=== PATIENT | female | born 1980 | race Hispanic/Latino ===

== ENCOUNTER 2017-06-25 04:19 | Emergency (ER) | payer SELFPAY ==
[2017-06-25 04:30] LABS: Bilirubin Negative (Negative); Blood, Urine Large (Negative); Glucose, Urine (Dipstick) Negative (Negative); Ketone, Urine Negative (Negative); Nitrite Negative (Negative); Protein, Urine (Dipstick) 30 mg/dL (Neg-Trace); Urobilinogen 0.2 mg/dL (0.2-1.0)
[2017-06-25 04:31] LABS: Bacteria/HPF 1+ HPF (None Seen); Hyaline Casts/LPF NONE SEEN LPF (0-3 Hyaline)
[2017-06-25 04:44] LABS: RBC/HPF GREATER THAN 50-TNTC HPF (0-3)
[2017-06-25] MEDS ORDERED: Phenazopyridine HCl 97.5 MG TABLET ONE ×2 (04:45→04:46)
[2017-06-25] MEDS ORDERED: Ondansetron ODT 4 MG TAB ONE (04:45)
[2017-06-25] MEDS ORDERED: Cephalexin 500 MG CAP ONE (04:45)
[2017-06-25 05:08] LABS: #Basophils 0.1 thou/uL (0.0-0.2); #Eosinphils 0.2 thou/uL (0.0-0.7); #Lymphocytes 2.1 thou/uL (1.20-3.40); #Monocytes 0.8 thou/uL (0.11-0.59); #Neutrophils 6.9 thou/uL (1.40-6.50); %Basophils 0.7 % (0.0-1.0); %Eosinophils 2.2 % (0.0-10.0); %Lymphocytes 21.1 % (21.0-51.0); %Monocytes 7.9 % (0.0-10.0); Mean Platelet Volume 6.8 fL (7.4-10.4); Red Blood Cell (RBC) Count 3.92 mill/uL (4.20-5.40); White Blood Cell (WBC) Count 10.1 thou/uL (4.8-10.8)
[2017-06-25 05:21] LABS: ALT (SGPT) 10 U/L (8-55); AST (SGOT) 13 U/L (5-34); Alkaline Phosphatase 47 U/L (40-150); Anion Gap 12 mmol/L (10-20); BUN (Urea Nitrogen) 15 mg/dL (7.0-18.7); Bilirubin, Total 0.3 mg/dL (0.2-1.2); Calc. Creatinine Clearance 0 mL/min (70-130); Calcium 8.5 mg/dL (7.8-10.44); Carbon Dioxide 24 mmol/L (22-29); Chloride 108 mmol/L (98-107); Estimated GFR-MDRD Greater than 90; Globulin 3.4 g/dL (2.4-3.5); Protein, Total 6.9 g/dL (6.0-8.3)
== END 2017-06-25 05:28 | disposition home or self-care (01) ==
LOC: SCSER 04:19
DX: N39.0 Urinary tract infection, site not specified (principal)
CPT/HCPCS: 80053; 81003; 81015; 81025; 85025; 87077; 87086; 99283; Q0162

== ENCOUNTER 2018-12-12 00:47 | Emergency (ER) | payer MEDICAID, SELFPAY ==
[2018-12-12 01:03] LABS: Bilirubin Large (Negative); Blood, Urine Large (Negative); Clarity TURBID (Clear); Glucose, Urine (Dipstick) 100 mg/dL (Negative); Leukocyte Large (Negative); Nitrite Positive (Negative); Protein, Urine (Dipstick) 300 mg/dL (Neg-Trace); Specific Gravity, Urine 1.022 (1.002-1.036); pH, Urine 5.5 (5.0-9.0)
[2018-12-12 01:05] LABS: Bacteria/HPF Rare-Few HPF (None Seen); RBC/HPF GREATER THAN 50-TNTC HPF (0-3); Squamous Epithelial 0-3 HPF (0-3)
[2018-12-12 01:09] LABS: Pathc Cast-AUWi Flag 643.16 (0-2.49)
[2018-12-12 01:21] LABS: Hyaline Casts/LPF 0-3 HYALINE CAST LPF (0-3 Hyaline); Other Casts/LPF None Seen LPF (0-3 Hyaline)
[2018-12-12] MEDS ORDERED: Lidocaine 2% PF 5 ML VIAL ONE (01:37)
[2018-12-12] MEDS ORDERED: cefTRIAXone\\ROCEPHIN 1 GM VIAL ONE (01:37)
== END 2018-12-12 01:48 | disposition home or self-care (01) ==
LOC: ERS 00:47
DX: N39.0 Urinary tract infection, site not specified (principal)
CPT/HCPCS: 81003; 81015; 96372; J0696; J2001

== ENCOUNTER 2019-08-13 08:59 | Emergency (ER) | payer SELFPAY ==
[2019-08-13 11:14] LABS: Bacteria/HPF 1+ HPF (None Seen); Bilirubin Negative (Negative); Blood, Urine Negative (Negative); Clarity Clear (Clear); Glucose, Urine (Dipstick) Normal (Negative); Leukocyte 75 Leu/uL (Negative); Nitrite Negative (Negative); Pregnancy Test - Urine (BHCG) Negative (Negative); Pregu Control Background? CLEAR/WHITE (CLR/WHITE); Pregu Control Bar Appear? YES (CONTROL BAR); Protein, Urine (Dipstick) Negative (Neg-Trace); Urobilinogen Normal mg/dL (Less than 2); WBC/HPF 21-50 HPF (0-3)
[2019-08-13] MEDS ORDERED: Ibuprofen 200 MG TAB ONE (11:48)
[2019-08-13] MEDS ORDERED: Ondansetron ODT 4 MG TAB ONE (11:48)
--- NOTE | 2019-08-13 13:08 | ULT ---
TRANSABDOMINAL AND TRANSVAGINAL PELVIC ULTRASOUND WITH DOPPLER: 08/13/2019 PROVIDED CLINICAL HISTORY: Pelvic pain. COMPARISON: 01/04/2014 FINDINGS: The uterus measures about 9.6 x 4.3 x 5.6 cm. There is an area of altered echogenicity, which is some what circumscribed, involving/adjacent to the endometrium, involving the posterior aspects of the penobscot rine fundus. Whether this is myometrial or endometrial in origin is not certain. This appears similar to the prior examination. The right and left ovaries demonstrate no significant abnormality. Color Doppler and spectral analysi s of the ovarian waveforms demonstrate normal flow bilaterally. There is simple appearing free pelvic fluid demonstrated, possibly physiologic. IMPRESSION: 1. Stable, incompletely characterized mass-like area of altered echogenicity involving the uterine fu ndus. 2. Small amount of possibly physiologic free pelvic fluid. POS: OFF
== END 2019-08-13 14:15 | disposition home or self-care (01) ==
LOC: ERS 08:59
DX: N39.0 Urinary tract infection, site not specified (principal); N80.9 Endometriosis, unspecified
CPT/HCPCS: 76856; 81003; 81015; 81025; Q0162

== ENCOUNTER 2020-01-10 03:21 | Emergency (ER) | payer SELFPAY | END 2020-01-10 03:38 | disposition home or self-care (01) | LOC: ERS 03:21 | DX: K12.2 Cellulitis and abscess of mouth (principal); R59.0 Localized enlarged lymph nodes; F41.9 Anxiety disorder, unspecified; Z79.899 Other long term (current) drug therapy | CPT/HCPCS: 99283 ==

== ENCOUNTER 2020-02-18 14:58 | Observation (INO) | payer SELFPAY ==
[2020-02-18 15:39] LABS: #Eosinphils 0.1 thou/uL (0.0-0.7); #Lymphocytes 2.4 thou/uL (1.20-3.40); #Monocytes 1.1 thou/uL (0.11-0.59); #Neutrophils 6.2 thou/uL (1.40-6.50); %Basophils 0.4 % (0.0-1.0); %Eosinophils 1.2 % (0.0-10.0); %Lymphocytes 24.5 % (21.0-51.0); %Monocytes 11.3 % (0.0-10.0); %Neutrophils 62.7 % (42.0-75.0); Hemoglobin 11.9 g/dL (12.0-16.0); Mean Corpuscular HGB CONC 32.2 g/dL (32.0-36.0); Mean Corpuscular Hemoglobin 29.5 pg (27.0-31.0); Mean Corpuscular Volume 91.7 fL (78.0-98.0); Platelet Count 267 thou/uL (130-400); RBC Distribution Width 12.2 % (11.5-14.5); Red Blood Cell (RBC) Count 4.03 mill/uL (4.20-5.40); White Blood Cell (WBC) Count 9.9 thou/uL (4.8-10.8)
[2020-02-18 15:58] LABS: ALT (SGPT) 14 U/L (8-55); AST (SGOT) 19 U/L (5-34); Albumin 3.8 g/dL (3.5-5.0); Alkaline Phosphatase 60 U/L (40-110); Anion Gap 9 mmol/L (10-20); BUN (Urea Nitrogen) 11 mg/dL (7.0-18.7); Bilirubin, Total 0.4 mg/dL (0.2-1.2); Calc. Creatinine Clearance 0 mL/min (70-130); Calcium 8.3 mg/dL (7.8-10.44); Carbon Dioxide 24 mmol/L (22-29); Chloride 107 mmol/L (98-107); Estimated GFR-MDRD Greater than 90; Globulin 3.8 g/dL (2.4-3.5); Glucose 103 mg/dL (70-105); Potassium 3.4 mmol/L (3.5-5.1); Protein, Total 7.6 g/dL (6.0-8.3); Sodium 137 mmol/L (136-145)
[2020-02-18] MEDS ORDERED: Aspirin 325 MG TAB ONE (16:05)
--- NOTE | 2020-02-18 16:26 | CT ---
BRAIN CT WITHOUT IV CONTRAST: 02/18/20 HISTORY: Altered mental status, stroke alert, numbness and tingling on the right side. FINDINGS: No mass or midline shift. No intra or extra-axial hemorrhage. Stable appearance from 11/17/15. IMPRESSION: No significant acute process. No mass or bleed. Findings were discussed with Dr. Gutierrez at approximately 3:19 p.m. Code CR POS: RRE
[2020-02-18] MEDS ORDERED: Acetaminophen 325 MG TAB PO PRN (19:20)
--- NOTE | 2020-02-18 19:20 | HP ---
PRIMARY CARE PHYSICIAN: Dr. Conroy at [facility]. CHIEF COMPLAINT: Numbness on right side. HISTORY OF PRESENT ILLNESS: The patient is a very pleasant 39-year-old female with past medical history significant only for anxiety and migraines. She presents to the ER today for feeling of numbness on the right side for 3 days with an abnormal gait. She states that the people at work noticed that she was walking funny, although she did not notice it. They described it as sort of a limping gait. She also says the feeling on her right side from the face down to toes feels like pins and needles. There are no other symptoms including headache or blurred vision. She did state there was little bit of nausea when it started 3 days ago. In 2016, she was seen in the hospital with right-sided numbness and she was diagnosed with a complex migraine but does state that this feels a little different than that. Today in the ER, they completed an EKG, head CT and performed blood work. Aspirin 324 mg was given and a swallow eval was completed. PAST MEDICAL HISTORY: Migraine, anxiety. PAST SURGICAL HISTORY: Tubal ligation, cholecystectomy. ALLERGIES: PENICILLIN CAUSES SWELLING. MEDICATIONS: Citalopram 20 mg p.o. daily. SOCIAL HISTORY: Patient lives at home with her and 18-year-old son. She is the director of a childcare facility. She denies smoking or illicit drugs, but does drink alcohol socially but very rarely. FAMILY HISTORY: Negative for cardiac disease, lung disease or CVAs. REVIEW OF SYSTEMS: All other review of systems negative unless noted in HPI. PHYSICAL EXAMINATION: VITAL SIGNS: Blood pressure 108/63, pulse 65, respiratory rate 18, pain 0, O2 sat 99% on room air. GENERAL: The patient is a healthy-appearing woman who appears to be her stated age. She is alert and oriented. HEENT: Head is atraumatic and normocephalic. Eyes, pupils equal, round, and reactive to light. Conjunctiva normal. No photophobia. ENT: Mucous membranes moist. No tongue deviation. No lymphadenopathy. RESPIRATORY: Clear to auscultation bilaterally. No wheezes, no rales, no rhonchi. Normal chest movement. CARDIOVASCULAR: Regular rate and rhythm. No murmurs, no gallops, no rubs. GASTROINTESTINAL: Abdomen is nontender. No distention. Positive bowel sounds. EXTREMITIES: No edema, no clubbing, no cyanosis. NEUROLOGIC: The patient is oriented to person, place, and time. Speech is clear. Gait not assessed at this time. Cranial nerves intact. Right arm, able to fully move, but with decreased hat mender strength 4/5. Right leg with decreased strength 4 /5. Right face, arm, and leg with a slight decreased sensation to touch. No cerebellar deficits. No nystagmus noted. PSYCHIATRIC: Patient is alert and oriented. Normal behavior and normal affect. LABS AND IMAGING: EKG showed normal sinus rhythm at [address] of the brain showed no acute intracranial processes. Labs showed white blood cells 9.9, hemoglobin 11.9, hematocrit 37.0. Sodium 137, potassium 3.4, chloride 107, BUN 11, creatinine 0.71, GFR 90, glucose 120. IMPRESSION: 1. CVA versus Transient ischemic attack versus complex migraine. 2. Right side paresthesias. 3. Anxiety. PLAN: Pepcid 20 mg p.o. b.i.d. for GI prophylaxis, Lovenox 40 mg subcu daily for VTE prophylaxis. Neurology will be consulted to see the patient in the morning. The patient has few risk factors for a TIA or CVA and has had similar symptoms in the past leading to a diagnosis of complex migraine. She has experienced a great deal of stress at work lately with the changes implemented after the COVID 19 outbreak. MRI of the brain will be ordered in the morning. Fasting lipids will be collected. Stroke Team will follow the patient. Patient wishes to be a full code. Her will be her surrogate decision maker. Patient was discussed with Dr. Salcido. Job ID: [id number] [facility]
[2020-02-18 21:52] VITALS: BMI 26.7
[2020-02-18] MEDS: Famotidine 20 MG TAB PO SCH (21:55)
[2020-02-18] MEDS: Atorvastatin Calcium 40 MG TAB PO SCH (21:55)
[2020-02-19 05:06] LABS: #Eosinphils 0.2 thou/uL (0.0-0.7); #Lymphocytes 2.2 thou/uL (1.20-3.40); #Monocytes 0.7 thou/uL (0.11-0.59); #Neutrophils 2.9 thou/uL (1.40-6.50); %Basophils 0.7 % (0.0-1.0); %Eosinophils 3.2 % (0.0-10.0); %Monocytes 11.2 % (0.0-10.0); %Neutrophils 48.9 % (42.0-75.0); Hemoglobin 11.2 g/dL (12.0-16.0); Mean Corpuscular HGB CONC 31.2 g/dL (32.0-36.0); Mean Corpuscular Hemoglobin 29.2 pg (27.0-31.0); Mean Corpuscular Volume 93.3 fL (78.0-98.0); Mean Platelet Volume 7.3 fL (7.4-10.4); Platelet Count 248 thou/uL (130-400); RBC Distribution Width 12.1 % (11.5-14.5); Red Blood Cell (RBC) Count 3.83 mill/uL (4.20-5.40)
[2020-02-19 05:31] LABS: Anion Gap 8 mmol/L (10-20); BUN (Urea Nitrogen) 9 mg/dL (7.0-18.7); Calc. Creatinine Clearance 123 mL/min (70-130); Calcium 7.9 mg/dL (7.8-10.44); Carbon Dioxide 24 mmol/L (22-29); Cardiac Risk 2.7 (Less than 4.5); Chloride 110 mmol/L (98-107); Cholesterol 117 mg/dl (< 200 Desired); Estimated GFR-MDRD Greater than 90; Glucose 100 mg/dL (70-105); HDL Cholesterol 44 mg/dL (>60 Neg Risk); LDL Cholesterol, Calculated 65 mg/dL; Sodium 138 mmol/L (136-145); Triglycerides 41 mg/dL (Less than 150)
--- NOTE | 2020-02-19 08:05 | MRI ---
Exam: Brain MRI without contrast HISTORY: Transient ischemic attack COMPARISON: 09/07/2010 FINDINGS: Calvarial marrow signal intensity: Appropriate T1 signal Gradient echo sequence: No hemorrhage Brain parenchyma: No mass, mass effect or midline shift. Brain volume, age-appropriate. Cortical vo-white matter differentiation: Preserved Restricted diffusion: Central arterial flow voids are maintained. Absent restricted diffusion White matter signal intensities: T2, FLAIR white matter hyperintensities due to chronic small vessel ischemic changes Sinuses: Minimal mucosal thickening of the paranasal sinuses IMPRESSION: 1. Absent restricted diffusion. No acute infarct. 2. No acute intracranial process.
[2020-02-19] MEDS: Famotidine 20 MG TAB PO SCH ×2 (09:07→21:28)
[2020-02-19] MEDS: Aspirin 81 mg Enteric Coated Tablet PO SCH (09:07)
[2020-02-19] MEDS: Enoxaparin Sodium 40 MG/0.4 ML SYRINGE SC SCH (09:08)
--- NOTE | 2020-02-19 11:46 | PDOC.HOSPP ---
- Subjective Encounter Date: 02/19/20 Encounter Time: 11:44 Subjective: Ms. Hebert was seen today in follow-up of parasthesias on the right side. She denies headache or weakness. - Objective Vital Signs & Weight: Vital Signs (12 hours) Temp Pulse Pulse Resp BP BP BP 02/19/20 11:32 98.1 F 55 L 16 96/53 L 02/19/20 08:42 65 101/58 L 105/58 L 02/19/20 08:00 98.3 F 65 18 104/54 L 02/19/20 03:46 97.8 F 68 16 BP Pulse Ox 02/19/20 11:32 98 02/19/20 08:42 02/19/20 08:00 97 02/19/20 03:46 115/57 L 98 Weight Weight 146 lb I&O: 02/18/20 02/19/20 02/20/20 06:59 06:59 06:59 Intake Total 350 Balance 350 Result Diagrams: 02/19/20 04:50 02/19/20 04:50 Additional Labs: Accuchecks 02/18/20 15:11 POC Glucose 120 H Hospitalist ROS - Medication Medications: Active Medications Generic Name Dose Route Start Last Admin Trade Name Freq PRN Reason Stop Dose Admin Aspirin 81 mg 02/19/20 09:00 02/19/20 09:07 Ecotrin PO 81 mg DAILY COOPER Administration Atorvastatin Calcium 40 mg 02/18/20 21:00 02/18/20 21:55 Lipitor PO 40 mg HS COOPER Administration Enoxaparin Sodium 40 mg 02/19/20 09:00 02/19/20 09:08 Lovenox SC 40 mg 0900 COOPER Administration Famotidine 20 mg 02/18/20 21:00 02/19/20 09:07 Pepcid PO 20 mg BID COOPER Administration Sodium Chloride 10 ml 02/18/20 21:00 02/19/20 09:08 Flush - Normal Saline IVF 10 ml Q12HR COOPER Administration - Exam Eye: PERRL, anicteric sclera Heart: RRR, no murmur, no gallops, no rubs, normal peripheral pulses Respiratory: CTAB, no wheezes, no rales, no ronchi, normal chest expansion Gastrointestinal: soft, non-tender, non-distended, normal bowel sounds Extremities: no cyanosis, no edema Hosp A/P (1) Paresthesia of right arm and leg Code(s): R20.2 - PARESTHESIA OF SKIN Status: Acute - Plan * Right sided parasthesia- discussed with Dr. Cedillo- She does not believe this is a TIA, CVA, or Migraine It could possibly be MS. * An LP is recommended. I discussed this with the patient and she would prefer to have this done in the hospital. She says she would not be able to do this as an outpatient. * Blood pressure is low normal- will monitor
--- NOTE | 2020-02-19 12:01 | CON ---
DATE OF CONSULTATION: 02/19/2020 REASON FOR CONSULTATION: Focal paresthesias on the right side. HISTORY OF PRESENT ILLNESS: Ms. Hebert is a 39-year-old female with no significant past medical history except for anxiety and migraines, last one in 2015, presented to the emergency room yesterday with 3-day history of focal paresthesias on the right upper and lower extremity. Per the patient, the people noted that she was not walking right and was limping on the right side. She also started feeling pins and needles in the right upper and lower extremity, which made her difficult to walk. She denies any focal weakness, nausea, vomiting, headache, dizziness, vertigo, blurred vision, loss of vision, chest pain, abdominal pain, or headache associated with the event. She was diagnosed with a complex migraine in the past, but according to her, this time she had no headache. Her last migraine was in 2015. She had a similar episode of focal paresthesias and difficulty walking when she was in late 20s, which resolved on its own after a few months. She denies family history of MS. In the emergency room, head CT was performed, which did not reveal any acute intracranial pathology. She was given aspirin and admitted to the stroke unit for further evaluation. PAST MEDICAL HISTORY: Anxiety, migraines. PAST SURGICAL HISTORY: Cholecystectomy, tubal ligation. ALLERGIES: PENICILLIN. MEDICATIONS: Citalopram 20 mg daily. SOCIAL HISTORY: , lives with her 18-year-old son and . She works as a director of the Childcare Facility. Denies smoking, drugs, and but drinks alcohol rarely. FAMILY HISTORY: The family history is negative for MS, coronary artery disease, stroke, or pulmonary disease. REVIEW OF SYSTEMS: All other systems were reviewed and were negative except for pertinent positives and negatives noted in the HPI. Vital Signs & Weight: Vital Signs (12 hours) Temp Pulse Pulse Resp BP BP BP 02/19/20 11:32 98.1 F 55 L 16 96/53 L 02/19/20 08:42 65 101/58 L 105/58 L 02/19/20 08:00 98.3 F 65 18 104/54 L 02/19/20 03:46 97.8 F 68 16 BP Pulse Ox 02/19/20 11:32 98 02/19/20 08:42 02/19/20 08:00 97 02/19/20 03:46 115/57 L 98 Weight Weight 146 lb I&O: 02/18/20 02/19/20 02/20/20 06:59 06:59 06:59 Intake Total 350 Balance 350 02/19/20 04:50 Additional Labs: Accuchecks 02/18/20 15:11 POC Glucose 120 H Hospitalist ROS - Medication Medications: Active Medications Generic Name Dose Route Start Last Admin Trade Name Henrry PRN Reason Stop Dose Admin Aspirin 81 mg 02/19/20 09:00 02/19/20 09:07 Ecotrin PO 81 mg DAILY COOPER Administration Atorvastatin Calcium 40 mg 02/18/20 21:00 02/18/20 21:55 Lipitor PO 40 mg HS COOPER Administration Enoxaparin Sodium 40 mg 02/19/20 09:00 02/19/20 09:08 Lovenox SC 40 mg 0900 COOPER Administration Famotidine 20 mg 02/18/20 21:00 02/19/20 09:07 Pepcid PO 20 mg BID COOPER Administration Sodium Chloride 10 ml 02/18/20 21:00 02/19/20 09:08 Flush - Normal Saline IVF 10 ml Q12HR COOPER Administration - Exam Eye: PERRL, anicteric sclera Heart: RRR, no murmur, no gallops, no rubs, normal peripheral pulses Respiratory: CTAB, no wheezes, no rales, no ronchi, normal chest expansion Gastrointestinal: soft, non-tender, non-distended, normal bowel sounds Extremities: no cyanosis, no edema NEUROLOGICAL: Speech is clear. The patient is alert and oriented to person, place, and time. Cranial nerves 2 through 12 intact. Motor; muscle tone and bulk are normal. Strength 5/5 bilaterally. Sensory; decreased sensation to all sensory modalities in the right upper and lower extremity. Reflexes symmetric bilaterally. Cerebellar; finger-nose testing intact. Gait not tested because of the patient' s safety reasons. DATA REVIEWED: I reviewed the MRI of the brain, which was negative. The labs were essentially unremarkable. ASSESSMENT AND PLAN: Ms. Alea Hebert is consulted for 3-day history of focal paresthesias. MRI of the brain reviewed, which was negative for acute intracranial pathology. The patient denies headache during this episode. She had history of prior similar episode in the past. Past imaging negative per patient. May consider MS workup for focal paresthesias. PT/OT/speech Continue aspirin and statin for secondary stroke prevention. Neuro checks every 4 hours. Continue home medications. Continue medical management per Primary Team. Recommend echocardiography and EEG to rule out parietal region cortical irritability . We will follow up on the results. Further recommendations depend on the results of the testing. Plan discussed in detail with the patient and the primary attending, Dr. Salcido. Job ID: [id number] [facility]
--- NOTE | 2020-02-19 13:54 | RAD ---
Lumbar puncture fluoroscopic guided HISTORY: Paresthesias. Evaluate for multiple sclerosis. FINDINGS: After explaining the procedure and answering all questions, the lower back was prepped and draped in usual sterile fashion. Sterile technique, buffered local anesthesia, fluoroscopic guidance, and a posterior L2-3 approach were used to carefully advance the tip of a 20-gauge spinal n eedle to the thecal sac. Opening CSF pressure 19 cm. Total volume of 8 cc clear CSF was collected and submitted to laboratory for evaluation. Needle was removed. Patient tolerated the procedure well and was returned in unchanged condition. IMPRESSION: Technically successful lumbar puncture. Pathology is pending.
[2020-02-19 13:56] LABS: CSF Source CSF; Clarity Clear (Clear); Tube # 4
--- NOTE | 2020-02-19 14:56 | EEG ---
Referring Physician: Adelia MICHAEL EEG # [id number] TEST TYPE: EXTENDED CONTINUOUS VIDEO EEG REPORT: This EEG was performed using 24 channel [email or web address] video digital EEG machine with 24 disc electrodes. This was an extended 2 hour 11 minutes of inpatient video EEG recording. Digital analysis of the EEG was done for spike and seizure detection which revealed no abnormalities. BACKGROUND: The posterior background rhythm is 9-10 hertz. The background rhythm attenuates with eye opening and enhances with eye closure. HYPERVENTILATION: No significant response seen with hyperventilation. PHOTIC STIMULATION: Bioccipital symmetric driving response is observed. SLEEP: Drowsiness and brief sleep are observed. EEG DIAGNOSIS: NORMAL AWAKE, DROWSY AND ASLEEP EEG. Terrazzo Worker Apprentice: PATRICIA Storage Battery Inspector And Tester: [email or web address]
--- NOTE | 2020-02-19 15:02 | PDOC.EVN ---
Event Note - Event Note Event Note: Send out labs should take around 5 days to result. Patient should continue working with PT and once cleared by them and has received EEG results could possibly discharge home or to rehab and await the lab results outpatient. Discussed with Dr. Salcido.
[2020-02-19 16:33] LABS: Ref Lab Test Ordered IGM TOTAL CSF; Reference Lab Name LABCORP
[2020-02-19 16:36] LABS: Ref Lab Test Ordered IGG INDEX + SYNTH; Reference Lab Name LABCORP
[2020-02-19] MEDS: Atorvastatin Calcium 40 MG TAB PO SCH (21:28)
[2020-02-20 08:04] VITALS: TEMP 97.8
[2020-02-20] MEDS: Famotidine 20 MG TAB PO SCH (08:33)
[2020-02-20] MEDS: Enoxaparin Sodium 40 MG/0.4 ML SYRINGE SC SCH (08:33)
[2020-02-20] MEDS: Aspirin 81 mg Enteric Coated Tablet PO SCH (08:34)
[2020-02-20] MEDS ORDERED: methylPREDNISolone Sod Succ 1 GM in Sodium Chloride 0.9% 250 ML 250 ML IVPB SCH (10:15)
[2020-02-20] MEDS ORDERED: methylPREDNISolone Sod Succ 40 MG VIAL IVP SCH (10:15)
[2020-02-20] MEDS ORDERED: Hydrocortisone Sod Succ/PF 1,000 MG in Sodium Chloride 0.9% 250 ML 250 ML IVPB SCH (10:15)
[2020-02-20 11:43] VITALS: BP 111/51
--- NOTE | 2020-02-22 11:27 | DIS ---
DATE OF ADMISSION: 02/18/2020 DATE OF DISCHARGE: DISCHARGE DIAGNOSES: 1. Possible acute exacerbation of multiple sclerosis. 2. Possible complicated migraine. 3. Right-sided weakness and numbness. DISCHARGE MEDICATIONS: 1. Aspirin 81 mg orally daily. 2. Famotidine 20 mg orally twice daily. 3. Prednisone 500 mg twice daily for 4 days. HISTORY OF PRESENT ILLNESS AND HOSPITAL COURSE: The patient is a 39-year-old female with past medical history of anxiety and migraines, who presented to the hospital with weakness and numbness in her right side and difficulty walking for 3 days. The patient stated that she had episodes of numbness on different parts of her body and visual changes over the years that all resolved spontaneously. Differential diagnosis included CVA, complicated migraine, or multiple sclerosis. MRI of the brain did not show any acute abnormalities. EEG was unremarkable. A lumbar puncture was performed and the test was sent for oligoclonal band for which the results have yet to come back. The patient was initiated on high-dose IV corticosteroids in the hospital for suspected multiple sclerosis given her history. I will continue with prednisone 1 g a day for 4 more days to complete 5 days of treatment course. The patient will be given a walker for discharge. She has been instructed to follow up with her PCP in 1 week to follow on the CSF results. Outpatient followup with Neurology was also recommended. Job ID: [id number]
[2020-02-23 18:14] LABS: ANA Symphony (Qualitative) POSITIVE (Negative); CENP IgG Antibody 0.7 EliAU/mL (<7 Negative); Jo-1 IgG Antibody 0.4 EliAU/mL (<7 Negative); RNP70 IgG Antibody 0.3 EliAU/mL (<7 Negative); SSB/La IgG Antibody 0.6 EliAU/mL (<7 Negative); Scleroderma-70 IgG Antibody 1.1 EliAU/mL (<7 Negative); dsDNA IgG Antibody 1.3 IU/mL (<10 Negative)
== END 2020-02-20 11:53 | disposition home or self-care (01) ==
LOC: ERS 14:58 → 2SE 16:36
PROVIDERS: ADMIT Internal Medicine; ATTEND Internal Medicine
PROC: 00JU3ZZ Inspection of Spinal Canal, Percutaneous Approach (ICD-10-PCS; principal; 2020-02-20)
DX: R20.2 Paresthesia of skin (principal); R53.1 Weakness; F41.9 Anxiety disorder, unspecified; Z79.899 Other long term (current) drug therapy; Z88.0 Allergy status to penicillin
CPT/HCPCS: 36415; 36416; 62270; 70450; 70551; 80048; 80053; 80061; 83873; 83916; 84157; 84484; 85025; 86038; 86225; 86235; 87070; 87205; 89051; 93005; 95712; 95816; 95819; 95957; 96365; 96372; G0378; J1650; J2930; J7050

== ENCOUNTER 2020-02-25 15:35 | Emergency (ER) | payer SELFPAY ==
--- NOTE | 2020-02-25 16:14 | CT ---
CT HEAD WITHOUT IV CONTRAST COMPARISON: 02/18/2020 HISTORY: Syncope. TECHNIQUE: Axial CT imaging at 5 mm intervals from vertex through skull base without contrast FINDINGS: There is no evidence of an acute infarction, hemorrhage, mass effect, or midline shift. The ventricul ar system is normal in size, shape, and position. Visualized paranasal sinuses are clear. Osseous structures appear intact. CT head is stable compared to prior exam. IMPRESSION: 1. No acute intracranial abnormality demonstrated.
[2020-02-25 16:16] LABS: #Eosinphils 0.1 thou/uL (0.0-0.7); #Lymphocytes 2.9 thou/uL (1.20-3.40); #Monocytes 2.1 thou/uL (0.11-0.59); %Basophils 0.2 % (0.0-1.0); %Eosinophils 0.3 % (0.0-10.0); %Neutrophils 73.5 % (42.0-75.0); Hemoglobin 12.4 g/dL (12.0-16.0); Mean Corpuscular HGB CONC 33.6 g/dL (32.0-36.0); Mean Corpuscular Hemoglobin 30.5 pg (27.0-31.0); Mean Corpuscular Volume 90.8 fL (78.0-98.0); Platelet Count 322 thou/uL (130-400); RBC Distribution Width 12.2 % (11.5-14.5); Red Blood Cell (RBC) Count 4.06 mill/uL (4.20-5.40); White Blood Cell (WBC) Count 19.1 thou/uL (4.8-10.8)
[2020-02-25 16:21] LABS: BHCG - Serum Negative (NEGATIVE); Pregs Control Bar Appear? YES (CONTROL BAR)
[2020-02-25 16:22] LABS: Pregs Control Background? CLEAR/WHITE (CLR/WHITE)
[2020-02-25 16:29] LABS: ALT (SGPT) 27 U/L (8-55); AST (SGOT) 18 U/L (5-34); Albumin 2.8 g/dL (3.5-5.0); Alkaline Phosphatase 49 U/L (40-110); Anion Gap 9 mmol/L (10-20); BUN (Urea Nitrogen) 17 mg/dL (7.0-18.7); Bilirubin, Total 0.2 mg/dL (0.2-1.2); CK (CPK) 26 U/L (29-168); Calc. Creatinine Clearance 0 mL/min (70-130); Calcium 7.5 mg/dL (7.8-10.44); Carbon Dioxide 24 mmol/L (22-29); Chloride 107 mmol/L (98-107); Estimated GFR-MDRD Greater than 90; Glucose 112 mg/dL (70-105); Protein, Total 5.8 g/dL (6.0-8.3); Sodium 137 mmol/L (136-145)
[2020-02-25] MEDS ORDERED: Potassium Chloride 20 MEQ TAB ONE (16:52)
--- NOTE | 2020-02-27 14:27 | EKG ---
Test Reason : SYNCOPE Blood Pressure : / mmHG Vent. Rate : 074 BPM Atrial Rate : 074 BPM P-R Int : 140 ms QRS Dur : 080 ms QT Int : 394 ms P-R-T Axes : 054 019 018 degrees QTc Int : 437 ms Normal sinus rhythm Abnormal ECG Confirmed by DAIN TALBOT, SHARON Torres ([id number]), editor dictionary QUYEN GOSS ([id number]) on 02/27/2020 2:27:24 PM Referred By: Confirmed By:SHARON GAUTAM MD
== END 2020-02-25 17:14 | disposition home or self-care (01) ==
LOC: ERS 15:35
DX: R55 Syncope and collapse (principal); F41.9 Anxiety disorder, unspecified; G35 Multiple sclerosis; Z79.899 Other long term (current) drug therapy
CPT/HCPCS: 36415; 70450; 80053; 82550; 84484; 84703; 85025; 93005; 96360

== ENCOUNTER 2020-03-08 17:35 | Emergency (ER) | payer OTHER, SELFPAY ==
[2020-03-09 12:48] LABS: SARS-CoV-2 MS2 Positive; SARS-CoV-2 N Gene Negative; SARS-CoV-2 S Gene Negative; SARS-CoV-2 orf1ab Negative
== END 2020-03-08 18:20 | disposition home or self-care (01) ==
LOC: ERS 17:35
DX: R05 Cough (principal); F41.9 Anxiety disorder, unspecified; G35 Multiple sclerosis; Z79.899 Other long term (current) drug therapy; Z20.828 Contact with and (suspected) exposure to other viral communicable diseases
CPT/HCPCS: 87635; 99283; U0003

== ENCOUNTER 2021-07-17 22:29 | Emergency (ER) | payer SELFPAY | END 2021-07-17 23:15 | disposition home or self-care (01) | LOC: ERS 22:29 | DX: H10.9 Unspecified conjunctivitis (principal); H11.422 Conjunctival edema, left eye | CPT/HCPCS: 99283 ==

== ENCOUNTER 2024-08-23 23:25 | Emergency (ER) | payer BC ==
[2024-08-23] MEDS ORDERED: Ketorolac Tromethamine 30 MG (1 mL) VIAL ONE (23:40)
[2024-08-23] MEDS ORDERED: Morphine 4 MG/ML VIAL ONE (23:40)
[2024-08-23] MEDS ORDERED: Ondansetron PF 4 MG/2 ML Vial ONE (23:40)
[2024-08-23 23:58] LABS: #Basophils 0.04 10x3/uL (0.0-0.2); %Basophils 0.3 % (0.0-1.0); %Eosinophils 1.5 % (0.0-10.0); %Lymphocytes 29.9 % (21.0-51.0); %Neutrophils 58.9 % (42.0-75.0); Hematocrit 38.1 % (36.0-47.0); Hemoglobin 12.5 g/dL (12.0-16.0); Mean Corpuscular HGB CONC 32.8 g/dL (32.0-36.0); Mean Corpuscular Hemoglobin 28.8 pg (27.0-31.0); Mean Corpuscular Volume 87.8 fL (78.0-98.0); Mean Platelet Volume 9.2 fL (7.4-10.4); Platelet Count 331 10x3/uL (130-400); RBC Distribution Width 13.1 % (11.5-14.5); Red Blood Cell (RBC) Count 4.34 mill/uL (4.20-5.40)
[2024-08-24 00:14] LABS: ALT (SGPT) 14 U/L (8-55); AST (SGOT) 20 U/L (5-34); Albumin 3.7 g/dL (3.5-5.0); Alkaline Phosphatase 61 U/L (40-110); Anion Gap 12 mmol/L (10-20); BUN (Urea Nitrogen) 9 mg/dL (7.0-18.7); Bilirubin, Total 0.3 mg/dL (0.2-1.2); Calc. Creatinine Clearance 0 mL/min (70-130); Calcium 8.9 mg/dL (7.8-10.44); Carbon Dioxide 22 mmol/L (22-29); Chloride 105 mmol/L (98-107); Estimated GFR 107; Globulin 4.1 g/dL (2.4-3.5); Glucose 108 mg/dL (70-105); Potassium 3.7 mmol/L (3.5-5.1); Protein, Total 7.8 g/dL (6.0-8.3); Sodium 135 mmol/L (136-145)
[2024-08-24 00:52] LABS: Pregnancy Test - Urine (BHCG) Negative (Negative); Pregu Control Background? CLEAR/WHITE (CLR/WHITE); Pregu Control Bar Appear? YES (CONTROL BAR); Specific Gravity 1.011 (1.002-1.036)
[2024-08-24 00:53] LABS: Bilirubin Negative (Negative); Blood, Urine Large (Negative); Glucose, Urine (Dipstick) Negative (Negative); Ketone, Urine Negative (Negative); Leukocyte Moderate (Negative); Nitrite Negative (Negative); Protein, Urine (Dipstick) 100 mg/dL (Neg-Trace); Specific Gravity, Urine 1.015 (1.005-1.030); Urobilinogen 0.2 mg/dL (Less than 2)
[2024-08-24 00:54] LABS: Clarity Hazy (Clear)
[2024-08-24 01:11] LABS: Bacteria/HPF None Seen HPF (None Seen); CAUTI Indications for Culture Dysuria,urgency,freq; RBC/HPF Greater than 50 HPF (0-3); WBC/HPF 21-50 HPF (0-3)
[2024-08-24 01:15] LABS: Urine Culture Reflex Yes Yes
[2024-08-24] MEDS ORDERED: cefTRIAXone (ROCEPHIN) 2 GM VIAL ONE (01:38)
[2024-08-24] MEDS ORDERED: Sodium Chloride 0.9% 100 ML ONE (01:38)
== END 2024-08-24 03:00 | disposition home or self-care (01) ==
LOC: ERS 23:25
DX: N39.0 Urinary tract infection, site not specified (principal)
CPT/HCPCS: 36415; 74176; 80053; 81001; 81025; 83605; 85025; 87077; 87086; 87186; 96374; 96375; J0696; J1885; J2272; J2405